=== PATIENT | male | born 1950 | race Caucasian/White ===

== ENCOUNTER 2017-06-30 11:34 | Emergency (ER) | payer MEDICARE, MEDICAID ==
[2017-06-30 11:43] VITALS: BP 154/97
[2017-06-30] MEDS ORDERED: HYDROmorphone 1 MG/ML Syringe IM ONE (12:02)
--- NOTE | 2017-06-30 12:08 | EDM.PDOC ---
ED HPI GENERAL MEDICAL PROBLEM - General Chief Complaint: Upper Extremity Injury/Pain Stated Complaint: RIGHT ARM PAIN Time Seen by Provider: 06/30/17 11:53 Source of Information: Reports: Patient History Limitations: Reports: No Limitations - History of Present Illness INITIAL COMMENTS - FREE TEXT/NARRATIVE: Patient is 67-year-old male presents ED complaining of right shoulder and elbow pain. Patient states yesterday he awoke to this discomfort. Symptoms are progressively got worse since. States he cannot lift his right shoulder and also banged his right elbow secondary discomfort. Denies any recent trauma or activity may precipitated this symptoms. There is no swelling, redness, ecchymosis, numbness or tingling present. He does have a history of right shoulder surgery 30 some mild years ago secondary to rotator cuff tear. He's had no issues since. States he does sleep on the affected side. Unable to last night secondary discomfort. Past medical history: Hypoglycemia, hypertension, COPD, GERD, arthritis, chronic neck/back pain, osteoporosis, CVA, and diabetes type 2. Current medications see list. Treatments PASSENGER SERVICE AGENT: Reports: Other (see below) Other Treatments PASSENGER SERVICE AGENT: medication he uses for migraines Right Shoulder Pain Score (Numeric/FACES): 10 - Related Data Allergies Allergy/AdvReac Type Severity Reaction Status Date / Time No Known Allergies Allergy Verified 07/24/16 10:08 Home Meds: Home Meds Alendronate [Fosamax] 70 mg PO DAILY 03/25/14 [History] Clopidogrel [Plavix] 75 mg PO DAILY 03/25/14 [History] Divalproex Sodium [Depakote] 500 mg PO DAILY 03/25/14 [History] Lisinopril 20 mg PO DAILY 03/25/14 [History] Rosuvastatin [Crestor] 20 mg PO DAILY 03/25/14 [History] SitaGLIPtin [Januvia] 100 mg PO DAILY 03/25/14 [History] Triamterene/Hydrochlorothiazid [Triamterene-HCTZ 37.5-25 MG] 1 each PO DAILY [History] Ziprasidone HCl [Geodon] 60 mg PO DAILY 03/25/14 [History] glyBURIDE [Glyburide] 5 mg PO DAILY 03/25/14 [History] metFORMIN [Glucophage] 1,000 mg PO BIDM 03/25/14 [History] Ofloxacin [Floxin 0.3% Otic Soln] 2 drop EYEBOTH TID #1 bottle 11/11/15 [Rx] Hydrocodone/Acetaminophen [Hydrocodon-Acetaminophen 5-325] 1 - 2 each PO Q6HR PRN #20 tablet 07/20/16 [Rx] Omeprazole Magnesium [Prilosec Otc] 20 mg PO DAILY #15 tablet. 07/20/16 [Rx] Past Medical History Cardiovascular History: Reports: High Cholesterol, Hypertension Respiratory History: Reports: COPD, SOB Gastrointestinal History: Reports: GERD Other Gastrointestinal History: spleenectomy Other Genitourinary History: Lt. Renal Lesions Musculoskeletal History: Reports: Arthritis, Back Pain, Chronic, Neck Pain, Chronic, Osteoporosis Neurological History: Reports: None Endocrine/Metabolic History: Reports: Diabetes, Type II - Past Surgical History HEENT Surgical History: Reports: Cataract Surgery GI Surgical History: Reports: Colonoscopy Social & Family History - Tobacco Use Smoking Status *Q: Current Every Day Smoker Years of Tobacco use: 35 Packs/Tins Daily: 0.2 Second Hand Smoke Exposure: Yes - Caffeine Use Caffeine Use: Reports: Coffee, Soda - Recreational Drug Use Recreational Drug Use: No Review of Systems - Review of Systems Review Of Systems: See Below Constitutional: Reports: No Symptoms Respiratory: Reports: Cough (chronic), Sputum (chronic). Denies: Shortness of Breath Cardiovascular: Reports: No Symptoms GI/Abdominal: Denies: Abdominal Pain, Diarrhea, Nausea, Vomiting Musculoskeletal: Reports: Neck Pain (chronic), Shoulder Pain (right), Arm Pain ( right elbow). Denies: Back Pain Skin: Reports: No Symptoms Neurological: Denies: Numbness, Tingling ED EXAM, GENERAL - Physical Exam Exam: See Below Exam Limited By: No Limitations General Appearance: Alert, WD/WN, No Apparent Distress Eye Exam: Bilateral Eye: PERRL Ears: Hearing Grossly Normal Nose: Normal Inspection Throat/Mouth: Normal Voice, No Airway Compromise Neck: Normal Inspection, Supple Respiratory/Chest: No Respiratory Distress, Lungs Clear, No Accessory Muscle Use Cardiovascular: Normal Peripheral Pulses, Regular Rate, Rhythm Peripheral Pulses: 2+: Radial (R) Back Exam: Normal Inspection, Full Range of Motion Extremities: Normal Inspection, Normal Capillary Refill, Other (elbow. Decreased range of motion 2nd to pain. No pain to the clavicle, upper back, forearm, wrist, hand. No finding consistent with biceps tear. ) Neurological: Alert, Oriented, CN II-XII Intact, Normal Cognition, No Motor/ Sensory Deficits Psychiatric: Normal Affect, Normal Mood Skin Exam: Warm, Dry, Intact, Normal Color Course - Vital Signs Last Recorded V/S: Last Vital Signs Temp 98.0 F 06/30/17 11:41 Pulse 80 06/30/17 11:41 Resp 20 06/30/17 11:41 BP 154/97 H 06/30/17 11:41 Pulse Ox 88 L 06/30/17 11:41 - Orders/Labs/Meds Orders: Active Orders 24 hr Category Date Time Status Elbow Min 3V Rt [CR] Stat Exams 06/30/17 12:02 Taken Shoulder Comp Rt [CR] Stat Exams 06/30/17 12:02 Taken VL Duplex Upr Ext Veins Ltd Rt [US] Stat Exams 06/30/17 13:57 Taken Labs: Laboratory Tests 06/30/17 06/30/17 06/30/17 Range/Units 12:30 12:30 12:30 WBC 15.38 H (4.23-9.07) K/mm3 RBC 5.60 (4.63-6.08) M/mm3 Hgb 17.6 H (13.7-17.5) gm/L Hct 53.1 H (40.1-51.0) % MCV 94.8 H (79.0-92.2) fl MCH 31.4 (25.7-32.2) pg MCHC 33.1 (32.2-35.5) g/dl RDW Std Deviation 52.1 H (35.1-43.9) fL Plt Count 150 L (163-337) K/mm3 MPV 13.3 H (9.4-12.3) fl Neut % (Auto) 57.1 (34.0-67.9) % Lymph % (Auto) 23.3 (21.8-53.1) % [place] % (Auto) 15.1 H (5.3-12.2) % Eos % (Auto) 3.7 (0.8-7.0) Baso % (Auto) 0.3 (0.1-1.2) % Neut # (Auto) 8.78 H (1.78-5.38) K/mm3 Lymph # (Auto) 3.59 H (1.32-3.57) K/mm3 [place] # (Auto) 2.32 H (0.30-0.82) K/mm3 Eos # (Auto) 0.57 H (0.04-0.54) K/mm3 Baso # (Auto) 0.05 (0.01-0.08) K/mm3 Manual Slide Review Abnormal smear ESR 22 H (0-15) mm/hr Sodium 141 (136-145) mEq/L Potassium 3.8 (3.5-5.1) mEq/L Chloride 105 (98-107) mEq/L Carbon Dioxide 27 (21-32) mEq/L Anion Gap 12.8 (5-15) BUN 20 H (7-18) mg/dL Creatinine 1.2 (0.7-1.3) mg/dL Est Cr Clr Drug Dosing 65.66 mL/min Estimated GFR (MDRD) > 60 (>60) mL/min BUN/Creatinine Ratio 16.7 (14-18) Glucose 340 H (80-115) mg/dL Uric Acid (3.5-7.2) mg/dL Calcium 9.4 (8.5-10.1) mg/dL Total Bilirubin 0.2 (0.2-1.0) mg/dL AST 11 L (15-37) U/L ALT 14 L (16-63) U/L Alkaline Phosphatase 95 (46-116) U/L C-Reactive Protein 4.6 H* (<1.0) mg/dL Total Protein 7.7 (6.4-8.2) g/dl Albumin 3.3 L (3.4-5.0) g/dl Globulin 4.4 gm/dL Albumin/Globulin Ratio 0.8 L (1-2) 06/30/17 Range/Units 12:37 WBC (4.23-9.07) K/mm3 RBC (4.63-6.08) M/mm3 Hgb (13.7-17.5) gm/L Hct (40.1-51.0) % MCV (79.0-92.2) fl MCH (25.7-32.2) pg MCHC (32.2-35.5) g/dl RDW Std Deviation (35.1-43.9) fL Plt Count (163-337) K/mm3 MPV (9.4-12.3) fl Neut % (Auto) (34.0-67.9) % Lymph % (Auto) (21.8-53.1) % [place] % (Auto) (5.3-12.2) % Eos % (Auto) (0.8-7.0) Baso % (Auto) (0.1-1.2) % Neut # (Auto) (1.78-5.38) K/mm3 Lymph # (Auto) (1.32-3.57) K/mm3 [place] # (Auto) (0.30-0.82) K/mm3 Eos # (Auto) (0.04-0.54) K/mm3 Baso # (Auto) (0.01-0.08) K/mm3 Manual Slide Review ESR (0-15) mm/hr Sodium (136-145) mEq/L Potassium (3.5-5.1) mEq/L Chloride (98-107) mEq/L Carbon Dioxide (21-32) mEq/L Anion Gap (5-15) BUN (7-18) mg/dL Creatinine (0.7-1.3) mg/dL Est Cr Clr Drug Dosing mL/min Estimated GFR (MDRD) (>60) mL/min BUN/Creatinine Ratio (14-18) Glucose (80-115) mg/dL Uric Acid 2.9 L (3.5-7.2) mg/dL Calcium (8.5-10.1) mg/dL Total Bilirubin (0.2-1.0) mg/dL AST (15-37) U/L ALT (16-63) U/L Alkaline Phosphatase (46-116) U/L C-Reactive Protein (<1.0) mg/dL Total Protein (6.4-8.2) g/dl Albumin (3.4-5.0) g/dl Globulin gm/dL Albumin/Globulin Ratio (1-2) Meds: Medications Discontinued Medications Generic Name Dose Route Start Last Admin Trade Name Freq PRN Reason Stop Dose Admin Hydromorphone HCl 1 mg 06/30/17 12:02 06/30/17 12:08 Dilaudid IM 06/30/17 12:03 1 mg ONETIME ONE Administration - Re-Assessments/Exams Free Text/Narrative Re-Assessment/Exam: Will obtain x-rays of the right shoulder and elbow. In addition patient is a diabetic thus we'll obtain basic labs including CBC, chem 14, CRP, and ESR. Vital signs are stable. Patient is afebrile. Unclear etiology at this point of current complaint. X-rays of the right elbow and shoulder did not reveal any acute bony abnormalities. Soft tissue swelling to the medial aspect of distal humerus. Labs reviewed: White blood cell count 15.38, hemoglobin 17.6, neutrophil percentage 67.1, neutrophil number is 8.78, ESR 22, sodium 141, potassium 3.8, creatinine 1.2, glucose 340, CRP 4.6. Will go ahead and order vl duplex of the right upper extremity to rule out dvt. Patient is able to move the right elbow with discomfort. Thus most likely eliminating septic joint. He has no fever, redness, increased warmth, or swelling to the elbow. Ultrasound was delayed since ultrasonagrapher was not called. Ultrasound revealed no DVT. 06/30/17 17:[address] Manley, he did evaluate the patient. Concerned this maybe related to gout/pseudogout. Ordered uric acid. Will discharge patient home prior to results. Arm sling ordered. He will be notified if elevated. Discharge instructions as documented. Uric acid: 2.9. Departure - Departure Time of Disposition: 17:11 Disposition: Home, Self-Care 01 Condition: Good Clinical Impression: Elbow pain, right Right shoulder pain Qualifiers: Chronicity: acute Qualified Code(s): M25.511 - Pain in right shoulder - Discharge Information Instructions: How to Use a Sling, [id number], Pain Medicine Instructions, [id number], Tendinitis, [id number] Referrals: Haroldo Fuller MD [Primary Care Provider] - Dennis Smith MD [Physician] - Forms: ED Department Discharge Additional Instructions: Will have you wear arm sling when up taking off to sleep and with sitting. Apply ice to the affected area as needed for pain. Refrain from any activities that cause worsening pain. URic acid lab is pending. If positive you will be notified. If positive will call provide a prescription for colchicine and prednisone. For the time being will have you take aleve 1-2 tabs twice a day and norco 1 tab every 6 hours. Followup with PCP this coming week. Call and make an appt with Dr.Cote Bourgeois for earliest appt. Return to the E.D. for any new or worsening symptoms. - My Orders Last 24 Hours: My Active Orders 06/30/17 12:02 Elbow Min 3V Rt [CR] Stat Shoulder Comp Rt [CR] Stat 06/30/17 13:57 VL Duplex Upr Ext Veins Ltd Rt [US] Stat - Assessment/Plan Last 24 Hours: My Active Orders 06/30/17 12:02 Elbow Min 3V Rt [CR] Stat Shoulder Comp Rt [CR] Stat 06/30/17 13:57 VL Duplex Upr Ext Veins Ltd Rt [US] Stat
--- NOTE | 2017-07-01 17:54 | CR ---
Right elbow: Four views of the right elbow were obtained. Comparison: No previous elbow study. Joint spaces are maintained. No joint effusion is seen. No fracture or other bony abnormality is seen. Impression: 1. No abnormality is appreciated on right elbow study. Diagnostic code #1
--- NOTE | 2017-07-01 17:54 | CR ---
Right shoulder: Three views of the right shoulder were obtained. Comparison: No prior shoulder exam. Previous surgery is noted with screw being seen within the glenoid. Calcifications are noted off the greater tuberosity likely representing calcific bursitis. Mild degenerative change is noted within the acromioclavicular joint with mild inferior and superior spurring. Old healed right-sided rib fractures are seen. Previous cervical spine surgery is noted. Impression: 1. Calcific bursitis. Degenerative change within the acromioclavicular joint. 2. Other incidental findings as noted above. Diagnostic code #2
--- NOTE | 2017-07-01 17:54 | US ---
Right upper extremity venous ultrasound: Duplex and color flow imaging was obtained of the right internal jugular, subclavian, axillary, brachial, cephalic, radial and ulnar veins. Right basilic vein was also evaluated. Findings: Normal compression, augmentation and phasic flow are seen. Impression: 1. No venous thrombosis is seen within the right upper extremity. Diagnostic code #1 Agree with preliminary report issued by [facility] ([facility] preliminary report dictated on 06/30/17, 5:39 PM Central Time)
== END 2017-06-30 17:27 | disposition home or self-care (01) ==
LOC: JD.ED 11:34
DX: M25.521 Pain in right elbow (principal); M25.511 Pain in right shoulder; E11.9 Type 2 diabetes mellitus without complications; J44.9 Chronic obstructive pulmonary disease, unspecified; K21.9 Gastro-esophageal reflux disease without esophagitis; M19.90 Unspecified osteoarthritis, unspecified site; F17.210 Nicotine dependence, cigarettes, uncomplicated; I10 Essential (primary) hypertension; E78.00 Pure hypercholesterolemia, unspecified; Z86.73 Personal history of transient ischemic attack (TIA), and cerebral infarction without residual deficits; Z79.899 Other long term (current) drug therapy; Z79.84 Long term (current) use of oral hypoglycemic drugs; Z98.49 Cataract extraction status, unspecified eye
CPT/HCPCS: 36415; 73030; 73080; 80053; 84550; 85025; 85652; 86140; 93971; 96372; 99284; J1170

== ENCOUNTER 2020-09-04 11:10 | Emergency (ER) | payer MEDICARE, OTHER ==
[2020-09-04 11:59] VITALS: BP 102/59; PULSE 62
[2020-09-04] MEDS ORDERED: Lidocaine 1% 10 ML MDV INJECT ONE (13:10)
--- NOTE | 2020-09-04 14:00 | EDM.PDOC ---
ED HPI GENERAL MEDICAL PROBLEM - General Chief Complaint: Upper Extremity Injury/Pain Stated Complaint: L INDEX FINGER LAC Time Seen by Provider: 09/04/20 12:57 Source of Information: Reports: Patient, RN Notes Reviewed History Limitations: Reports: No Limitations - History of Present Illness INITIAL COMMENTS - FREE TEXT/NARRATIVE: Patient is a 70-year-old male presenting to the emergency department with complaints of a laceration to his left index finger. States that he was cleaning a deer and the knife slipped and he cut his finger. Last tetanus vaccination was 3 years ago. Left Finger-Index Pain Score (Numeric/FACES): 4 - Related Data Allergies Allergy/AdvReac Type Severity Reaction Status Date / Time No Known Allergies Allergy Verified 07/24/16 10:08 Home Meds: Home Meds Alendronate [Fosamax] 70 mg PO DAILY 03/25/14 [History] Clopidogrel [Plavix] 75 mg PO DAILY 03/25/14 [History] Lisinopril 20 mg PO DAILY 03/25/14 [History] Rosuvastatin [Crestor] 20 mg PO DAILY 03/25/14 [History] SitaGLIPtin [Januvia] 100 mg PO DAILY 03/25/14 [History] Triamterene/Hydrochlorothiazid [Triamterene-HCTZ 37.5-25 MG] 1 each PO DAILY 03/25/14 [History] glyBURIDE [Glyburide] 5 mg PO DAILY 03/25/14 [History] metFORMIN [Glucophage] 1,000 mg PO BIDM 03/25/14 [History] Ofloxacin [Floxin 0.3% Otic Soln] 2 drop EYEBOTH TID #1 bottle 11/11/15 [Rx] Hydrocodone/Acetaminophen [Hydrocodone-Acetamin 5-325 mg] 1 - 2 each PO Q6HR PRN #20 tablet 07/20/16 [Rx] Omeprazole Magnesium [Prilosec Otc] 20 mg PO DAILY #15 tablet. 07/20/16 [Rx] Past Medical History Cardiovascular History: Reports: High Cholesterol, Hypertension Respiratory History: Reports: COPD, SOB Gastrointestinal History: Reports: GERD Other Gastrointestinal History: spleenectomy Other Genitourinary History: Lt. Renal Lesions Musculoskeletal History: Reports: Arthritis, Back Pain, Chronic, Neck Pain, Chronic, Osteoporosis Neurological History: Reports: None Endocrine/Metabolic History: Reports: Diabetes, Type II - Past Surgical History HEENT Surgical History: Reports: Cataract Surgery GI Surgical History: Reports: Cholecystectomy, Colonoscopy Social & Family History - Tobacco Use Tobacco Use Status *Q: Current Every Day Tobacco User Years of Tobacco use: 50 Packs/Tins Daily: 1 - Caffeine Use Caffeine Use: Reports: Coffee, Soda - Recreational Drug Use Recreational Drug Use: No Review of Systems - Review of Systems Review Of Systems: Comprehensive ROS is negative, except as noted in HPI. ED EXAM, GENERAL - Physical Exam Exam: See Below Exam Limited By: No Limitations General Appearance: Alert, WD/WN, No Apparent Distress Respiratory/Chest: No Respiratory Distress, Lungs Clear, Normal Breath Sounds, No Accessory Muscle Use, Chest Non-Tender Cardiovascular: Normal Peripheral Pulses, Regular Rate, Rhythm, No Edema, No Gallop, No JVD, No Murmur, No Rub Neurological: Alert, Oriented, CN II-XII Intact, Normal Cognition, Normal Gait, Normal Reflexes, No Motor/Sensory Deficits Skin Exam: Other (2 cm laceration to the dorsal aspect of the left index finger immediately distal to the MCP joint. Scant active bleeding.) ED TRAUMA EXTREMITY PROCEDURES - Laceration/Wound Repair Left Dorsal Digit - 2nd (Index) Lac/Wound Length In cm: 2 Appearance: Subcutaneous Distal NVT: Neuro & Vascular Intact, No Tendon Injury Anesthetic Type: Local Local Anesthesia - Lidocaine (Xylocaine): 1% Plain Local Anesthetic Volume: 2cc Skin Prep: Chlorhexidine (Hibiciens), Saline, Sterile Drape Exploration/Debridement/Repair: Wound Explored, No Foreign Material Found Closed With: Sutures Suture Size: 4-0 # of Sutures: 4 Suture Type: Nylon Sterile Dressing Applied: Nurse Tetanus Status Addressed: Yes Complications: No Course - Vital Signs Last Recorded V/S: Last Vital Signs Temp 97.8 F 09/04/20 11:57 Pulse 62 09/04/20 11:57 Resp 20 09/04/20 11:57 BP 102/59 L 09/04/20 11:57 Pulse Ox 92 L 09/04/20 11:57 - Orders/Labs/Meds Meds: Medications Discontinued Medications Generic Name Dose Route Start Last Admin Trade Name Freq PRN Reason Stop Dose Admin Lidocaine HCl 10 ml 09/04/20 13:10 Xylocaine 1% INJECT 09/04/20 13:11 ONETIME ONE Departure - Departure Time of Disposition: 13:59 Disposition: Home, Self-Care 01 Condition: Good Clinical Impression: Laceration - Discharge Information *PRESCRIPTION DRUG MONITORING PROGRAM REVIEWED*: No *COPY OF PRESCRIPTION DRUG MONITORING REPORT IN PATIENT EBER: No Instructions: Laceration Care, Adult, [id number] Referrals: PCP,Not In Area [Primary Care Provider] - Additional Instructions: You were seen in the emergency department today for a laceration to your left index finger. The wound was cleansed and closed with 4 sutures. These should stay intact for 7-10 days. After that time they may be removed in the clinic by a nurse. Keep the wound clean and dry. Wash with normal soap and water twice daily. Do not submerge the wound in water. Watch for signs of infection including increased redness, swelling, or purulent drainage. If these should occur, you should be seen either in the clinic or in the emergency department as antibiotic treatment may be needed. Return to the ER as needed. Sepsis Event Note (ED) - Evaluation Sepsis Screening Result: No Definite Risk - Focused Exam Vital Signs: Vital Signs Temp Pulse Resp BP Pulse Ox 09/04/20 11:57 97.8 F 62 20 102/59 L 92 L
== END 2020-09-04 14:17 | disposition home or self-care (01) ==
LOC: JD.ED 11:10
DX: S61.211A Laceration without foreign body of left index finger without damage to nail, initial encounter (principal); I10 Essential (primary) hypertension; E78.00 Pure hypercholesterolemia, unspecified; F17.210 Nicotine dependence, cigarettes, uncomplicated; K21.9 Gastro-esophageal reflux disease without esophagitis; E11.9 Type 2 diabetes mellitus without complications; J44.9 Chronic obstructive pulmonary disease, unspecified; Z90.49 Acquired absence of other specified parts of digestive tract; Z79.84 Long term (current) use of oral hypoglycemic drugs; Z79.02 Long term (current) use of antithrombotics/antiplatelets; Z79.899 Other long term (current) drug therapy; W26.0XXA Contact with knife, initial encounter
CPT/HCPCS: 12001; 99282; J2001

== ENCOUNTER 2020-10-16 08:51 | Emergency (ER) | payer MEDICARE, OTHER ==
[2020-10-16 09:05] VITALS: BP 132/77; PULSE 78
--- NOTE | 2020-10-16 10:53 | CR ---
Chest: Portable view of the chest was obtained. Comparison: Prior chest x-ray of 07/20/[address] also performed on 07/20/16. Emphysematous change is seen. Callus is noted from five rib fractures on the right side. Slight scarring is noted off the left cardiac apex. Mild interstitial change is noted which is chronic. No acute parenchymal change is appreciated. Prior cervical spine surgery and right shoulder surgery is noted. Previous vertebroplasty is seen within the mid thoracic spine. Impression: 1. Emphysematous change. 2. Other findings as noted above which are stable. 3. Nothing acute is definitely appreciated. Diagnostic code #2
--- NOTE | 2020-10-16 11:51 | EDM.PDOC ---
ED HPI GENERAL MEDICAL PROBLEM - General Chief Complaint: Respiratory Problem Stated Complaint: SORE THROAT/COUGH/SOB (COVID + SEP 27) Time Seen by Provider: 10/16/20 11:30 - History of Present Illness INITIAL COMMENTS - FREE TEXT/NARRATIVE: 70-year-old male with COPD and diabetes is sent over to the emergency room from the walk-in clinic with low's O2 saturation. Patient was seen at the walk-in clinic today with low O2 saturation 88 to 90%. Patient chief complaint was a sore throat. Patient was found to be Covid positive on the first of this month now 19 days ago. Patient has chronic COPD this is not much worse his cough is not much worse. He is not coughing up anything and other than a sore throat he actually feels pretty good. Patient really denies having any symptoms from the Covid unless what he is experiencing now is a very late presentation. He has had a sore throat now for couple of days. Patient denies any loss of smell or taste no fevers no body aches no headache and no significantly worsening cough. He has had no gastrointestinal symptoms no nausea vomiting or diarrhea. - Related Data Allergies Allergy/AdvReac Type Severity Reaction Status Date / Time No Known Allergies Allergy Verified 10/16/20 09:05 Home Meds: Home Meds Alendronate [Fosamax] 70 mg PO DAILY 03/25/14 [History] Clopidogrel [Plavix] 75 mg PO DAILY 03/25/14 [History] Lisinopril 20 mg PO DAILY 03/25/14 [History] Rosuvastatin [Crestor] 20 mg PO DAILY 03/25/14 [History] SitaGLIPtin [Januvia] 100 mg PO DAILY 03/25/14 [History] Triamterene/Hydrochlorothiazid [Triamterene-HCTZ 37.5-25 MG] 1 each PO DAILY 03/25/14 [History] glyBURIDE [Glyburide] 5 mg PO DAILY 03/25/14 [History] metFORMIN [Glucophage] 1,000 mg PO BIDM 03/25/14 [History] Ofloxacin [Floxin 0.3% Otic Soln] 2 drop EYEBOTH TID #1 bottle 11/11/15 [Rx] Hydrocodone/Acetaminophen [Hydrocodone-Acetamin 5-325 mg] 1 - 2 each PO Q6HR PRN #20 tablet 07/20/16 [Rx] Omeprazole Magnesium [Prilosec Otc] 20 mg PO DAILY #15 tablet. 07/20/16 [Rx] Past Medical History Cardiovascular History: Reports: High Cholesterol, Hypertension Respiratory History: Reports: COPD, SOB Gastrointestinal History: Reports: GERD Other Gastrointestinal History: spleenectomy Other Genitourinary History: Lt. Renal Lesions Musculoskeletal History: Reports: Arthritis, Back Pain, Chronic, Neck Pain, Chronic, Osteoporosis Neurological History: Reports: None Endocrine/Metabolic History: Reports: Diabetes, Type II - Infectious Disease History Infectious Disease History: Reports: Novel Coronavirus - Past Surgical History HEENT Surgical History: Reports: Cataract Surgery GI Surgical History: Reports: Cholecystectomy, Colonoscopy Social & Family History - Tobacco Use Tobacco Use Status *Q: Never Tobacco User - Caffeine Use Caffeine Use: Reports: Coffee, Soda ED ROS GENERAL - Review of Systems Review Of Systems: See Below Constitutional: Reports: No Symptoms. Denies: Fever, Chills, Malaise, Weakness, Fatigue HEENT: Reports: Throat Pain Respiratory: Reports: Cough (Is mostly chronic perhaps a little worse). Denies: Shortness of Breath, Wheezing, Pleuritic Chest Pain, Sputum Cardiovascular: Reports: No Symptoms Endocrine: Reports: No Symptoms GI/Abdominal: Reports: No Symptoms : Reports: No Symptoms Musculoskeletal: Reports: No Symptoms Skin: Reports: No Symptoms Neurological: Reports: No Symptoms Psychiatric: Reports: No Symptoms Hematologic/Lymphatic: Reports: No Symptoms Immunologic: Reports: No Symptoms ED EXAM, GENERAL - Physical Exam Exam: See Below Exam Limited By: No Limitations General Appearance: Alert, No Apparent Distress Ears: Normal External Exam, Normal Canal, Hearing Grossly Normal, Normal TMs Nose: Normal Inspection, Normal Mucosa, No Blood Throat/Mouth: Normal Lips, Normal Gums, Normal Voice, No Airway Compromise, Other. No: Normal Teeth (Dentures is in place), Normal Oropharynx (Mild erythema) Head: Atraumatic, Normocephalic Neck: Normal Inspection, Supple, Non-Tender, Full Range of Motion. No: Lymphadenopathy (L), Lymphadenopathy (R) Respiratory/Chest: No Respiratory Distress, Lungs Clear, Normal Breath Sounds Cardiovascular: Regular Rate, Rhythm, No Edema, No Murmur GI/Abdominal: Normal Bowel Sounds, Soft, Non-Tender Back Exam: Normal Inspection. No: CVA Tenderness (L), CVA Tenderness (R) Extremities: Normal Inspection, No Pedal Edema Neurological: Alert, Oriented, Normal Cognition Psychiatric: Normal Affect, Normal Mood Course - Vital Signs Last Recorded V/S: Last Vital Signs Temp 37.0 C 10/16/20 09:02 Pulse 78 10/16/20 09:02 Resp 16 10/16/20 09:02 BP 132/77 10/16/20 09:02 Pulse Ox 89 L 10/16/20 09:02 - Orders/Labs/Meds Orders: Active Orders 24 hr Category Date Time Status EKG Documentation Completion [RC] STAT Care 10/16/20 09:26 Active CULTURE THROAT [RM] Stat Lab 10/16/20 13:24 Ordered Isolation [COMM] Routine Oth 10/16/20 12:08 Ordered Labs: Laboratory Tests 10/16/20 10/16/20 10/16/20 Range/Units 10:03 10:03 10:03 WBC 7.85 (4.23-9.07) K/mm3 RBC 5.18 (4.63-6.08) M/mm3 Hgb 16.2 (13.7-17.5) gm/dl Hct 50.0 (40.1-51.0) % MCV 96.5 H (79.0-92.2) fl MCH 31.3 (25.7-32.2) pg MCHC 32.4 (32.2-35.5) g/dl RDW Std Deviation 50.9 H (35.1-43.9) fL Plt Count 100 L (163-337) K/mm3 Neut % (Auto) 72.1 H (34.0-67.9) % Lymph % (Auto) 14.5 L (21.8-53.1) % [place] % (Auto) 12.6 H (5.3-12.2) % Eos % (Auto) 0.1 L (0.8-7.0) Baso % (Auto) 0.3 (0.1-1.2) % Neut # (Auto) 5.66 H (1.78-5.38) K/mm3 Lymph # (Auto) 1.14 L (1.32-3.57) K/mm3 [place] # (Auto) 0.99 H (0.30-0.82) K/mm3 Eos # (Auto) 0.01 L (0.04-0.54) K/mm3 Baso # (Auto) 0.02 (0.01-0.08) K/mm3 Manual Slide Review Normal smear D-Dimer, Quantitative (0.19-0.50) mg/L Sodium 139 (136-145) mEq/L Potassium 4.2 (3.5-5.1) mEq/L Chloride 103 (98-107) mEq/L Carbon Dioxide 25 (21-32) mEq/L Anion Gap 15.2 H (5-15) BUN 19 H (7-18) mg/dL Creatinine 0.8 (0.7-1.3) mg/dL Est Cr Clr Drug Dosing TNP Estimated GFR (MDRD) > 60 (>60) mL/min BUN/Creatinine Ratio 23.8 H (14-18) Glucose 321 H (83-115) mg/dL Lactic Acid 1.4 (0.4-2.0) mmol/L Calcium 8.8 (8.5-10.1) mg/dL Total Bilirubin 0.3 (0.2-1.0) mg/dL AST 68 H (15-37) U/L ALT 60 (16-63) U/L Alkaline Phosphatase 88 (46-116) U/L Total Protein 6.8 (6.4-8.2) g/dl Albumin 2.7 L (3.4-5.0) g/dl Globulin 4.1 gm/dL Albumin/Globulin Ratio 0.7 L (1-2) Monoscreen (NEGATIVE) Group A Strep (PCR) (NOT DETECT) 10/16/20 10/16/20 10/16/20 Range/Units 10:03 10:03 12:06 WBC (4.23-9.07) K/mm3 RBC (4.63-6.08) M/mm3 Hgb (13.7-17.5) gm/dl Hct (40.1-51.0) % MCV (79.0-92.2) fl MCH (25.7-32.2) pg MCHC (32.2-35.5) g/dl RDW Std Deviation (35.1-43.9) fL Plt Count (163-337) K/mm3 Neut % (Auto) (34.0-67.9) % Lymph % (Auto) (21.8-53.1) % [place] % (Auto) (5.3-12.2) % Eos % (Auto) (0.8-7.0) Baso % (Auto) (0.1-1.2) % Neut # (Auto) (1.78-5.38) K/mm3 Lymph # (Auto) (1.32-3.57) K/mm3 [place] # (Auto) (0.30-0.82) K/mm3 Eos # (Auto) (0.04-0.54) K/mm3 Baso # (Auto) (0.01-0.08) K/mm3 Manual Slide Review D-Dimer, Quantitative 0.29 (0.19-0.50) mg/L Sodium (136-145) mEq/L Potassium (3.5-5.1) mEq/L Chloride (98-107) mEq/L Carbon Dioxide (21-32) mEq/L Anion Gap (5-15) BUN (7-18) mg/dL Creatinine (0.7-1.3) mg/dL Est Cr Clr Drug Dosing Estimated GFR (MDRD) (>60) mL/min BUN/Creatinine Ratio (14-18) Glucose (83-115) mg/dL Lactic Acid (0.4-2.0) mmol/L Calcium (8.5-10.1) mg/dL Total Bilirubin (0.2-1.0) mg/dL AST (15-37) U/L ALT (16-63) U/L Alkaline Phosphatase (46-116) U/L Total Protein (6.4-8.2) g/dl Albumin (3.4-5.0) g/dl Globulin gm/dL Albumin/Globulin Ratio (1-2) Monoscreen Negative (NEGATIVE) Group A Strep (PCR) Not detected (NOT DETECT) Meds: Medications Discontinued Medications Generic Name Dose Route Start Last Admin Trade Name Freq PRN Reason Stop Dose Admin Benzocaine/Menthol 1 lozenge 10/16/20 14:47 Cepacol Sore Throat MUCMEM 10/16/20 14:48 NOW STA - Re-Assessments/Exams Free Text/Narrative Re-Assessment/Exam: 10/16/20 14:51 Patient is 19 days from a positive Covid not having typical symptoms. He comes in complaining only of a sore throat evaluation is pretty unremarkable here in the emergency room except he has some minimal low range O2 saturation 88 to 90%. Chest x-ray is unremarkable laboratory evaluation is noncontributory influenza is negative's rapid strep negative throat culture pending mono is negative. Ca se discussed with Dr. Ellington, our hospitalist, who agrees the patient can safely go home with topical treatments for sore throat. Departure - Departure Time of Disposition: 14:52 Disposition: Home, Self-Care 01 Clinical Impression: Pharyngitis - Discharge Information Referrals: Haroldo Fuller MD [Primary Care Provider] - Forms: ED Department Discharge Additional Instructions: Return to the emergency room with any questions problems or worsening symptoms. Follow-up with your primary care provider on Saturday or Saturday for recheck. profile saw setup operator some [id number] throat sprays or lozenges and use as directed. Confirmatory strep culture is pending the results of this should be back in a couple of days. Sepsis Event Note (ED) - Evaluation Sepsis Screening Result: No Definite Risk - Focused Exam Vital Signs: Vital Signs Temp Pulse Resp BP Pulse Ox 10/16/20 09:02 37.0 C 78 16 132/77 89 L - My Orders Last 24 Hours: My Active Orders 10/16/20 09:26 EKG Documentation Completion [RC] STAT 10/16/20 12:08 Isolation [COMM] Routine 10/16/20 13:24 CULTURE THROAT [RM] Stat - Assessment/Plan Last 24 Hours: My Active Orders 10/16/20 09:26 EKG Documentation Completion [RC] STAT 10/16/20 12:08 Isolation [COMM] Routine 10/16/20 13:24 CULTURE THROAT [RM] Stat
[2020-10-16] MEDS ORDERED: Benzocaine/Cetylpyridinium/Menthol Lozenge MUCMEM STA (14:47)
== END 2020-10-16 15:04 | disposition home or self-care (01) ==
LOC: JD.ED 08:51
DX: J02.9 Acute pharyngitis, unspecified (principal); E78.00 Pure hypercholesterolemia, unspecified; I10 Essential (primary) hypertension; J44.9 Chronic obstructive pulmonary disease, unspecified; K21.9 Gastro-esophageal reflux disease without esophagitis; E11.9 Type 2 diabetes mellitus without complications; Z86.19 Personal history of other infectious and parasitic diseases; Z79.02 Long term (current) use of antithrombotics/antiplatelets; Z79.899 Other long term (current) drug therapy
CPT/HCPCS: 36415; 71045; 80053; 83605; 85025; 85379; 86308; 87651; 87804; 93005; 99284; A9270

== ENCOUNTER 2022-02-16 09:41 | Emergency (ER) | payer MEDICARE, OTHER ==
[2022-02-16 13:33] VITALS: BP 147/88; PULSE 70
== END 2022-02-16 13:25 | disposition home or self-care (01) ==
LOC: JD.ED 09:41
DX: I70.223 Atherosclerosis of native arteries of extremities with rest pain, bilateral legs (principal); I25.10 Atherosclerotic heart disease of native coronary artery without angina pectoris; E78.00 Pure hypercholesterolemia, unspecified; I10 Essential (primary) hypertension; J44.9 Chronic obstructive pulmonary disease, unspecified; E11.9 Type 2 diabetes mellitus without complications; Z79.02 Long term (current) use of antithrombotics/antiplatelets; Z79.899 Other long term (current) drug therapy; Z79.4 Long term (current) use of insulin; Z72.0 Tobacco use
CPT/HCPCS: 36415; 74018; 74018-26; 80053; 83605; 83735; 83880; 85025; 85610; 85652; 85730; 86140; 99284; 99285

== ENCOUNTER 2022-10-09 20:55 | Emergency (ER) | payer MEDICARE, OTHER ==
[2022-10-09] MEDS ORDERED: Acetaminophen 325 MG Tab PO ONE (22:55)
[2022-10-09 23:02] LABS: CORONAVIRUS COVID-19 NAA NEGATIVE (NEGATIVE)
[2022-10-09] MEDS ORDERED: Potassium Chloride 20 MEQ Tab.ER PO ONE (23:56)
[2022-10-10 00:14] VITALS: BP 139/73; PULSE 66
== END 2022-10-10 00:13 | disposition home or self-care (01) ==
LOC: JD.ED 20:55
DX: H92.01 Otalgia, right ear (principal); J43.9 Emphysema, unspecified; B97.4 Respiratory syncytial virus as the cause of diseases classified elsewhere; I25.10 Atherosclerotic heart disease of native coronary artery without angina pectoris; E78.00 Pure hypercholesterolemia, unspecified; I10 Essential (primary) hypertension; K21.9 Gastro-esophageal reflux disease without esophagitis; M19.90 Unspecified osteoarthritis, unspecified site; E11.9 Type 2 diabetes mellitus without complications; Z72.0 Tobacco use; Z79.02 Long term (current) use of antithrombotics/antiplatelets; Z79.4 Long term (current) use of insulin; Z79.899 Other long term (current) drug therapy; R94.31 Abnormal electrocardiogram [ECG] [EKG]; Z20.822 Contact with and (suspected) exposure to COVID-19
CPT/HCPCS: 0241U; 36415; 71045; 80053; 84484; 85025; 85379; 85610; 85730; 93005; 99283; A9270

== ENCOUNTER → 2022-11-13 | Day surgery (SDC) | payer MEDICARE, OTHER ==
[2022-11-13] MEDS: Brimonidine 0.2% Ophth Soln 5 ML Bottle EYEBOTH SCH ×2 (12:33→13:38)
[2022-11-13] MEDS: Phenylephrine 2.5% Ophth Soln 2 ML Bot EYEBOTH SCH ×3 (12:37→12:58)
[2022-11-13 12:40] VITALS: BP 135/75; PULSE 65
[2022-11-13] MEDS: Tropicamide 1% Ophth Soln 15 ML Bottle EYEBOTH SCH ×3 (12:40→13:02)
== END ==
LOC: JD.SDS 12:36
PROVIDERS: ATTEND Ophthalmology
DX: E11.36 Type 2 diabetes mellitus with diabetic cataract (principal); H26.493 Other secondary cataract, bilateral; H40.003 Preglaucoma, unspecified, bilateral; H16.103 Unspecified superficial keratitis, bilateral; H16.223 Keratoconjunctivitis sicca, not specified as Sjogren's, bilateral; H02.831 Dermatochalasis of right upper eyelid; H02.834 Dermatochalasis of left upper eyelid; H57.813 Brow ptosis, bilateral; I10 Essential (primary) hypertension; M19.90 Unspecified osteoarthritis, unspecified site; N20.0 Calculus of kidney; F17.210 Nicotine dependence, cigarettes, uncomplicated; Z96.1 Presence of intraocular lens; Z86.73 Personal history of transient ischemic attack (TIA), and cerebral infarction without residual deficits; Z98.890 Other specified postprocedural states; Z79.899 Other long term (current) drug therapy
CPT/HCPCS: A9270-GY; J3490

== ENCOUNTER 2025-06-05 11:16 | Inpatient (IN) | payer MEDICARE, OTHER ==
[2025-06-05] MEDS: Succinylcholine 200 MG/10 ML MDV IV ONE (11:23)
[2025-06-05] MEDS: Etomidate 2 MG/ML 20 ML SDV IVPUSH ONE (11:23)
[2025-06-05] MEDS ORDERED: Sodium Chloride 0.9% 10 ML Syringe FLUSH PRN (11:37)
[2025-06-05] MEDS ORDERED: Ketamine 200 MG/20 ML MDV IVPUSH ONE (11:41)
[2025-06-05 12:02] LABS: A/G RATIO 0.5 (1-2); ALANINE AMINOTRANSFERASE,ALT 46 U/L (16-63); ASPARTATE AMNIOTRANSFERASE,AST 73 U/L (15-37); BILIRUBIN TOTAL 1.0 mg/dL (0.2-1.0); CARBON DIOXIDE,CO2 20 mEq/L (21-32); CHLORIDE,CL 111 mEq/L (98-107); CREATININE 3.6 mg/dL (0.7-1.3); ESTIMATED GFR 17 mL/min (>60); POTASSIUM,K 5.1 mEq/L (3.5-5.1); PROTEIN TOTAL,TP 6.4 g/dl (6.4-8.2); SODIUM,NA 153 mEq/L (136-145)
[2025-06-05] MEDS: Ketamine 200 MG/20 ML MDV IVPUSH ONE ×2 (12:03→12:43)
[2025-06-05 12:06] LABS: TROPONIN I HIGH SENSITIVITY 789 pg/mL (<=76)
[2025-06-05 12:07] LABS: ETHANOL BLOOD MEDICAL 0.00 gm% (0.00)
[2025-06-05] MEDS: Lactated Ringers 1,000 ML IV ONE (12:12)
[2025-06-05 12:24] LABS: BLOOD UREA NITROGEN,BUN 173 mg/dL (7-18); GLUCOSE RANDOM 783 mg/dL (70-99)
[2025-06-05 12:29] LABS: BASE EXCESS ARTERIAL -13.1 (-2-2.0); BICARBONATE,ARTERIAL 15.3 meq/L (22.0-26.0); O2 SATURATION ARTERIAL 100.0 % (96.0-97.0); PCO2 ARTERIAL 44.0 mmHg (35.0-45.0); PO2 ARTERIAL 393.0 mmHg (80.0-100.0)
[2025-06-05 12:30] LABS: PATIENT RESPIRATORY RATE 30.0 /MIN
[2025-06-05 12:35] LABS: APPEARANCE,URINE CLEAR (Clear); BASOPHILS ABSOLUTE AUTO 0.0 K/mm3 (0.0-0.2); BASOPHILS PERCENT AUTO 0.4 % (0.0-1.0); EOSINOPHILS ABSOLUTE AUTO 0.0 K/mm3 (0.0-0.4); EOSINOPHILS PERCENT AUTO 0.1 % (0.0-6.0); GLUCOSE,URINE 1+ (Negative); IMMATURE GRAN ABSOLUTE AUTO 0.11 K/mm3 (0.00-0.05); IMMATURE GRAN PERCENT AUTO 1.0 % (0.0-0.4); LYMPHOCYTES ABSOLUTE AUTO 0.7 K/mm3 (1.0-4.8); LYMPHOCYTES PERCENT AUTO 6.8 % (24.0-44.0); MEAN PLATELET VOLUME 14.1 fl (9.4-12.4); MONOCYTES ABSOLUTE AUTO 0.7 K/mm3 (0.0-0.8); MONOCYTES PERCENT AUTO 6.5 % (0.0-8.0); NEUTROPHILS ABSOLUTE AUTO 9.1 K/mm3 (1.8-7.7); NEUTROPHILS PERCENT AUTO 85.2 % (41.0-71.0); NRBC ABSOLUTE 0.04 (0.00-0.02); NRBC PERCENT 0.4 % (0.0-0.2); OCCULT BLOOD,URINE NEGATIVE (Negative); PLATELET COUNT,PLT 115 K/mm3 (150-400); RED BLOOD CELL COUNT 4.48 M/mm3 (4.52-5.90); WHITE BLOOD CELL COUNT,WBC 10.72 K/mm3 (3.9-11.3)
[2025-06-05 12:44] LABS: EPITHELIAL CELLS,URINE 0-5 /hpf (0-5)
[2025-06-05 12:45] LABS: BUPRENORPHINE SCREEN,URINE NEGATIVE (CUTOFF=10); METHADONE SCREEN, URINE NEGATIVE (CUT0FF=200); METHAMPHETAMINES SCREEN, URINE NEGATIVE (CUTOFF=500); OXYCODONE SCREEN,URINE NEGATIVE (CUT0FF=100); THC SCREEN,URINE 20 NG/ML NEGATIVE (CUTOFF=50)
[2025-06-05] MEDS: Lactated Ringers 1,000 ML IV SCH (12:48)
[2025-06-05 12:49] LABS: AMPHETAMINES SCREEN, URINE NEGATIVE (CUTOFF=500)
[2025-06-05 12:54] LABS: INR 1.34
[2025-06-05 12:55] LABS: PTT,PARTIAL THROMBOPLSTIN TIME 24.4 SECONDS (21.7-31.4)
[2025-06-05 13:20] LABS: BASE EXCESS ARTERIAL -10.7 (-2-2.0); BICARBONATE,ARTERIAL 15.9 meq/L (22.0-26.0); O2 SATURATION ARTERIAL 90.5 % (96.0-97.0); PCO2 ARTERIAL 37.0 mmHg (35.0-45.0); PO2 ARTERIAL 65.0 mmHg (80.0-100.0)
[2025-06-05 13:22] LABS: PATIENT RESPIRATORY RATE 33.0 /MIN
[2025-06-05] MEDS: Midazolam 1 MG/ML 5 ML SDV IVPUSH ONE (15:15)
[2025-06-05] MEDS ORDERED: 50% Dextrose in Water 50 ML Syringe IVPUSH PRN (16:03)
[2025-06-05] MEDS: Vasopressin 100 UNIT in Dextrose 5% in Water 245 ML IV SCH (16:44)
[2025-06-05 16:52] LABS: PCO2 ARTERIAL 53.0 mmHg (35.0-45.0); PO2 ARTERIAL 57.0 mmHg (80.0-100.0)
[2025-06-05 16:53] LABS: BASE EXCESS ARTERIAL -11.3 (-2-2.0); BICARBONATE,ARTERIAL 18 meq/L (22.0-26.0); O2 SATURATION ARTERIAL 81.6 % (96.0-97.0); PATIENT RESPIRATORY RATE 22.0 /MIN
[2025-06-05 17:50] LABS: LACTIC ACID 2.7 mmol/L (0.4-2.0)
[2025-06-05 17:51] LABS: CARBON DIOXIDE,CO2 19.0 mEq/L (21-32); CREATININE 3.0 mg/dL (0.7-1.3); EST CRCL DRUG DOSING (CG) 19.47 mL/min; ESTIMATED GFR 21.0 mL/min (>60); GLUCOSE RANDOM 363.0 mg/dL (70-99)
[2025-06-05 17:55] LABS: BASE EXCESS ARTERIAL -11.8 (-2-2.0); BICARBONATE,ARTERIAL 17.6 meq/L (22.0-26.0); O2 SATURATION ARTERIAL 96.4 % (96.0-97.0); PCO2 ARTERIAL 53.0 mmHg (35.0-45.0); PO2 ARTERIAL 84.0 mmHg (80.0-100.0)
[2025-06-05 17:56] LABS: PATIENT RESPIRATORY RATE 22.0 /MIN
[2025-06-05 17:59] LABS: SODIUM,NA 155.0 mEq/L (136-145)
[2025-06-05 18:03] LABS: POTASSIUM,K 4.7 mEq/L (3.5-5.1)
[2025-06-05 18:04] LABS: BLOOD UREA NITROGEN,BUN 148.0 mg/dL (7-18); CHLORIDE,CL 124.0 mEq/L (98-107)
[2025-06-05 18:24] LABS: POTASSIUM,K 5.0 mEq/L (3.5-5.1)
[2025-06-05 18:34] LABS: TROPONIN I HIGH SENSITIVITY 1595.0 pg/mL (<=76)
[2025-06-05] MEDS: Calcium Gluconate 10% 1 GM/10 ML SDV IVPUSH ONE (18:49)
[2025-06-05] MEDS: methylPREDNISolone Sodium Succinate 40 MG/1 ML SDV IVPUSH SCH (18:49)
[2025-06-05] MEDS: Metoprolol Tartrate 5 MG/5 ML SDV IVPUSH ONE (18:51)
[2025-06-05] MEDS: Phenylephrine 1% 10 MG/ML SDV ONE (19:12)
[2025-06-05] MEDS: propofoL 1,000 MG/100 ML 100 ML IV SCH (19:30)
[2025-06-05] MEDS ORDERED: Phenylephrine 10 MG in Sodium Chloride 0.9% 99 ML IV SCH (20:00)
[2025-06-05 20:39] LABS: BLOOD UREA NITROGEN,BUN 139.0 mg/dL (7-18); CARBON DIOXIDE,CO2 14.0 mEq/L (21-32); CHLORIDE,CL 122.0 mEq/L (98-107); CREATININE 3.0 mg/dL (0.7-1.3); EST CRCL DRUG DOSING (CG) 19.47 mL/min; ESTIMATED GFR 21.0 mL/min (>60); GLUCOSE RANDOM 390.0 mg/dL (70-99); SODIUM,NA 152.0 mEq/L (136-145)
[2025-06-05 20:50] LABS: PHOSPHORUS 9.3 mg/dL (2.6-4.7)
[2025-06-05 20:53] LABS: POTASSIUM,K 7.3 mEq/L (3.5-5.1)
[2025-06-05 21:02] LABS: BASE EXCESS ARTERIAL -18.0 (-2-2.0); BICARBONATE,ARTERIAL 12.4 meq/L (22.0-26.0); O2 SATURATION ARTERIAL 100.0 % (96.0-97.0); PCO2 ARTERIAL 46.0 mmHg (35.0-45.0); PO2 ARTERIAL 354.0 mmHg (80.0-100.0)
[2025-06-05 21:03] LABS: PATIENT RESPIRATORY RATE 20.0 /MIN
[2025-06-06 14:18] VITALS: BP 141/103; PULSE 47
== END 2025-06-06 03:02 | disposition expired | DRG 871 ==
LOC: JD.ED 11:16 → JD.ICU 15:46
PROVIDERS: ADMIT Family Medicine; ATTEND Family Medicine
PROC: 3E03329 Introduction of Other Anti-infective into Peripheral Vein, Percutaneous Approach (ICD-10-PCS; principal; 2025-06-05)
PROC: 4A13XR1 Monitoring of Arterial Saturation, Peripheral, External Approach (ICD-10-PCS; 2025-06-05)
DX: A41.9 Sepsis, unspecified organism (principal); E11.10 Type 2 diabetes mellitus with ketoacidosis without coma; T17.908A Unspecified foreign body in respiratory tract, part unspecified causing other injury, initial encounter; I21.3 ST elevation (STEMI) myocardial infarction of unspecified site; E11.11 Type 2 diabetes mellitus with ketoacidosis with coma; S00.81XA Abrasion of other part of head, initial encounter; J96.01 Acute respiratory failure with hypoxia; G92.8 Other toxic encephalopathy; R91.8 Other nonspecific abnormal finding of lung field; J69.0 Pneumonitis due to inhalation of food and vomit; S72.142A Displaced intertrochanteric fracture of left femur, initial encounter for closed fracture; J44.9 Chronic obstructive pulmonary disease, unspecified; R65.21 Severe sepsis with septic shock; J18.9 Pneumonia, unspecified organism; E87.0 Hyperosmolality and hypernatremia; Z79.84 Long term (current) use of oral hypoglycemic drugs; N17.9 Acute kidney failure, unspecified; M62.82 Rhabdomyolysis; J44.0 Chronic obstructive pulmonary disease with (acute) lower respiratory infection; I25.10 Atherosclerotic heart disease of native coronary artery without angina pectoris; E78.00 Pure hypercholesterolemia, unspecified; I10 Essential (primary) hypertension; K21.9 Gastro-esophageal reflux disease without esophagitis; E86.0 Dehydration; M19.90 Unspecified osteoarthritis, unspecified site; G89.29 Other chronic pain; M54.9 Dorsalgia, unspecified; M54.2 Cervicalgia; R57.1 Hypovolemic shock; R91.1 Solitary pulmonary nodule; M81.0 Age-related osteoporosis without current pathological fracture; R79.89 Other specified abnormal findings of blood chemistry; R57.0 Cardiogenic shock; T80.89XA Other complications following infusion, transfusion and therapeutic injection, initial encounter; J43.9 Emphysema, unspecified; X58.XXXA Exposure to other specified factors, initial encounter; Z79.899 Other long term (current) drug therapy; Z87.442 Personal history of urinary calculi; Z85.528 Personal history of other malignant neoplasm of kidney; Z79.02 Long term (current) use of antithrombotics/antiplatelets; Z90.81 Acquired absence of spleen; Z79.52 Long term (current) use of systemic steroids; Z79.4 Long term (current) use of insulin; Z86.16 Personal history of COVID-19; Z98.49 Cataract extraction status, unspecified eye; Z90.49 Acquired absence of other specified parts of digestive tract; Z90.5 Acquired absence of kidney; Z98.890 Other specified postprocedural states; W18.30XA Fall on same level, unspecified, initial encounter; Y92.89 Other specified places as the place of occurrence of the external cause
CPT/HCPCS: 31500; 36415; 36600; 36680; 51702; 70450; 70450-26; 71045; 71045-26; 71250; 71250-26; 72125; 72125-26; 74176; 74176-26; 80048; 80053; 80306; 80307; 81001; 82010; 82550; 82803; 82947; 83605; 83690; 83735; 83930; 84100; 84132; 84484; 85025; 85610; 85730; 86140; 87040; 93005; 93010; 94640; 96365; 96366; 96375; 96376; 99223; 99239; 99291; 99291-25; 99292; A9270-GY; J0171; J0330; J0612; J0696; J2250; J2371; J2470; J2543; J2704; J2919; J3480; J3490; J7030; J7040; J7060; J7120